=== PATIENT | female | born 1995 | race Caucasian/White ===

== ENCOUNTER → 2017-09-24 | Outpatient (CLI) | payer SELFPAY ==
[~2017-09-24] MED LIST: ABAC300; ALBU3IS; ALBU90OI INH; BENZ100A PO; BUDE6HFA; HYDACE5325 PO; LISI20 PO; LORA2 PO; Lisinopril1 GM; METF500C PO; PRED20 PO; PROP10; Prednisone10 MG PO; Prednisone20 MG PO; QVAR7.3 G1; SULTRIDS PO; Tessalon Perle100 MG PO; Ventolin Soln3 ML INH; [UNRECOGNIZED DRUG - REMARK]; [UNRECOGNIZED DRUG - REMARK]
== END ==
LOC: LAB SHORT 11:38 → LAB 11:38
DX: Z34.00 Encounter for supervision of normal first pregnancy, unspecified trimester (principal)
CPT/HCPCS: 87081; 87653

== ENCOUNTER 2018-04-16 17:23 | Emergency (ER) | payer OTHER ==
[~2018-04-16] VITALS: Ht 149.9 cm; Wt 86.2 kg
[2018-04-16] MEDS ORDERED: NAPR550 PO (18:55)
== END 2018-04-16 19:10 | disposition home or self-care (01) ==
LOC: ER 17:23
DX: S09.90XA Unspecified injury of head, initial encounter (principal); S16.1XXA Strain of muscle, fascia and tendon at neck level, initial encounter; S29.012A Strain of muscle and tendon of back wall of thorax, initial encounter; W18.2XXA Fall in (into) shower or empty bathtub, initial encounter; J45.909 Unspecified asthma, uncomplicated
CPT/HCPCS: 70450; 72070; 72125; J1885; J2405; J3010

== ENCOUNTER 2019-03-02 20:17 | Emergency (ER) | payer OTHER ==
[~2019-03-02] VITALS: Ht 149.9 cm; Wt 88.5 kg
[~2019-03-02 20:17] MED LIST changes: +NAPR550 PO
== END 2019-03-02 22:58 | disposition home or self-care (01) ==
LOC: ER 20:17
DX: S93.401A Sprain of unspecified ligament of right ankle, initial encounter (principal); X50.9XXA Other and unspecified overexertion or strenuous movements or postures, initial encounter; Z79.899 Other long term (current) drug therapy; Z79.84 Long term (current) use of oral hypoglycemic drugs; J45.909 Unspecified asthma, uncomplicated
CPT/HCPCS: 73610; 73630; 99283-25

== ENCOUNTER 2019-11-03 11:12 | Emergency (ER) | payer OTHER ==
[~2019-11-03] VITALS: Ht 149.9 cm; Wt 77.1 kg
[2019-11-03 11:57] LABS: BASOPHILS ABSOLUTE AUTO 0.04 K/mm3 (0.00-0.23); BASOPHILS PERCENT AUTO 1 % (0-2); EOSINOPHILS ABSOLUTE AUTO 0.59 K/mm3 (0.00-0.68); EOSINOPHILS PERCENT AUTO 7 % (0-6); Hematocrit 41.2 % (33.0-51.0); Hemoglobin 13.5 g/dL (11.5-16.0); IMMATURE GRAN ABSOLUTE AUTO 0.03 K/mm3 (0.00-0.10); IMMATURE GRAN PERCENT AUTO 0 % (0-1); LYMPHOCYTES ABSOLUTE AUTO 1.96 K/mm3 (0.84-5.20); LYMPHOCYTES PERCENT AUTO 23 % (21-46); MONOCYTES ABSOLUTE AUTO 0.38 K/mm3 (0.16-1.47); MONOCYTES PERCENT AUTO 5 % (4-13); Mean Corpuscular HGB 28.5 pg (26.0-34.0); Mean Corpuscular HGB Conc 32.8 g/dL (31.5-36.5); Mean Corpuscular Volume 87 fL (80-100); Mean Platelet Volume 10.9 fL (9.1-12.4); NEUTROPHILS PERCENT AUTO 64 % (41-73); Platelet Count 272 K/mm3 (150-400); RDW Coefficient Variation 13.1 % (11.7-14.2); RDW Standard Deviation 41.4 fL (35.1-46.3); Red Blood Cell Count 4.73 M/mm3 (3.80-5.20)
[2019-11-03] MEDS ORDERED: ACYC200 PO (12:10)
[2019-11-03 12:35] LABS: Alanine Aminotransfer (ALT/SGP 21 U/L (12-78); Albumin, Blood 3.6 g/dL (3.4-5.0); Albumin/Globulin Ratio 0.9 (0.8-1.8); Alk Phos 64 U/L (50-136); Anion Gap 7 mmol/L (6-16); Aspartate Aminotrans (AST/SGOT 11 U/L (12-37); Bilirubin, Total 0.6 mg/dL (0.1-1.0); Blood Urea Nitrogen 7 mg/dL (8-24); Bun/Creatinine Ratio 11.5 (12.0-20.0); CO2, Blood 24 mmol/L (21-32); Calcium, Blood 8.8 mg/dL (8.5-10.1); Chloride, Blood 111 mmol/L (98-108); Creatinine, Blood 0.61 mg/dL (0.40-1.00); Globulin, Blood 3.8 g/dL (2.2-4.0); Glomerular Filtration Rate >60 (60-); Glucose, Blood 148 mg/dL (70-99); Potassium, Blood 3.6 mmol/L (3.5-5.5); Sodium, Blood 142 mmol/L (136-145); Total Protein, Blood 7.4 g/dL (6.4-8.2)
[2019-11-03 13:23] LABS: Source, Urine Clean Catch
[2019-11-03 13:25] LABS: Bilirubin, Urine Neg (Neg); Blood, Urine Neg (Neg); Glucose Qualitative, Urine Neg (Neg); Ketones, Urine Neg (Neg); Leukocyte Esterase, Urine 1+ (Neg); Nitrite, Urine Neg (Neg); Protein, Urine Neg (Neg); Urobilinogen, Urine NORM (Normal)
[2019-11-03 13:33] LABS: Appearance, Urine Clear (Clear); Color, Urine Yellow (P-Yellow)
[2019-11-03 13:36] LABS: Bacteria Few /hpf; Red Blood Cells, Urine 0-2 /hpf (0-2); Squamous Epithelial Cells Mod /hpf (Few)
[2019-11-03] MEDS ORDERED: PROM25 PO (14:03)
[2019-11-03] MEDS ORDERED: ONDA4 PO (14:03)
== END 2019-11-03 14:20 | disposition home or self-care (01) ==
LOC: ER 11:12
PROVIDERS: Physician Assistant
DX: R11.2 Nausea with vomiting, unspecified (principal); J45.909 Unspecified asthma, uncomplicated; Z79.3 Long term (current) use of hormonal contraceptives; Z79.51 Long term (current) use of inhaled steroids; Z79.84 Long term (current) use of oral hypoglycemic drugs; Z79.899 Other long term (current) drug therapy
CPT/HCPCS: 36415; 80053; 81001; 81025; 83690; 85025; 87086; 93005; 93010; 96361; 96374; 99283-25; A9270; J2405; J7120

== ENCOUNTER 2020-04-01 00:04 | Emergency (ER) | payer OTHER ==
[~2020-04-01] VITALS: Ht 149.9 cm; Wt 95.2 kg
[~2020-04-01 00:04] MED LIST changes: +ACYC200 PO; +ONDA4 PO; +PROM25 PO
[2020-04-01] MEDS ORDERED: MONT10T PO (00:17)
[2020-04-01] MEDS ORDERED: IBUP600 PO (00:37)
== END 2020-04-01 01:30 | disposition home or self-care (01) ==
LOC: ER 00:04
DX: S83.91XA Sprain of unspecified site of right knee, initial encounter (principal); J45.909 Unspecified asthma, uncomplicated; Z79.84 Long term (current) use of oral hypoglycemic drugs; Z79.899 Other long term (current) drug therapy; Z79.51 Long term (current) use of inhaled steroids; W10.9XXA Fall (on) (from) unspecified stairs and steps, initial encounter; Y93.K1 Activity, walking an animal
CPT/HCPCS: 73562-RT; 99283-25; A9270

== ENCOUNTER 2020-04-22 21:53 | Emergency (ER) | payer OTHER ==
[~2020-04-22] VITALS: Ht 149.9 cm; Wt 90.7 kg
[~2020-04-22 21:53] MED LIST changes: +IBUP600 PO; +MONT10T PO
== END 2020-04-23 00:37 | disposition left against medical advice (07) ==
LOC: ER 21:53
DX: M25.572 Pain in left ankle and joints of left foot (principal)
CPT/HCPCS: 73590; 73610; 73630; 96372; 99283-25; J1885

== ENCOUNTER 2020-08-25 13:51 | Emergency (ER) | payer OTHER ==
[~2020-08-25] VITALS: Ht 149.9 cm; Wt 102.1 kg
[2020-08-25] MEDS ORDERED: Amoxicillin500 MG PO (15:12)
== END 2020-08-25 15:19 | disposition home or self-care (01) ==
LOC: ER 13:51
DX: J02.0 Streptococcal pharyngitis (principal)
CPT/HCPCS: 87081; 87147; 87430; 99284; J1100

== ENCOUNTER 2020-10-01 22:24 | Emergency (ER) | payer OTHER ==
[~2020-10-01] VITALS: Ht 149.9 cm; Wt 90.7 kg
[~2020-10-01 22:24] MED LIST changes: +Amoxicillin500 MG PO
== END 2020-10-02 03:30 | disposition home or self-care (01) ==
LOC: ER 22:24
DX: J45.901 Unspecified asthma with (acute) exacerbation (principal); Z20.822 Contact with and (suspected) exposure to COVID-19
CPT/HCPCS: 99283-25; A9270

== ENCOUNTER 2021-04-13 10:01 | Emergency (ER) | payer OTHER ==
[~2021-04-13] VITALS: Ht 149.9 cm; Wt 90.7 kg
[2021-04-13 11:11] LABS: Influenza A, PCR NEGATIVE (NEGATIVE); Influenza B, PCR NEGATIVE (NEGATIVE); Resp Syncytial Virus, PCR NEGATIVE (NEGATIVE); SARS-Cov-2 (COVID-19) PCR, MMC NEGATIVE (NEGATIVE)
[2021-04-13] MEDS ORDERED: AZIT250 PO (13:17)
[2021-04-13] MEDS ORDERED: Prednisone50 MG PO (13:17)
== END 2021-04-13 13:51 | disposition home or self-care (01) ==
LOC: ER 10:01
PROVIDERS: Emergency Medicine
DX: J45.901 Unspecified asthma with (acute) exacerbation (principal); Z20.822 Contact with and (suspected) exposure to COVID-19; Z79.2 Long term (current) use of antibiotics; Z79.899 Other long term (current) drug therapy
CPT/HCPCS: 0241U; 71045; 94640; 96374; 96375; 99285-25; A9270; J2405; J3475; J7512

== ENCOUNTER → 2021-05-02 | Outpatient (CLI) | payer OTHER ==
[~2021-05-02] MED LIST changes: +AZIT250 PO; +CYCL10 PO; +Prednisone50 MG PO
[2021-05-07 09:11] LABS: HPV 16 Negative (Negative); HPV 18 Negative (Negative); HPV OTHER HR TYPES Negative (Negative)
== END | disposition home or self-care (01) ==
LOC: LAB SHORT 11:50 → LAB 11:50
PROVIDERS: Nurse Practitioner Family
DX: Z12.4 Encounter for screening for malignant neoplasm of cervix (principal)
CPT/HCPCS: 87624; G0145

== ENCOUNTER 2021-07-15 18:20 | Emergency (ER) | payer OTHER ==
[~2021-07-15] VITALS: Ht 149.9 cm; Wt 99.8 kg
[~2021-07-15 18:20] MED LIST changes: -CYCL10 PO
[2021-07-15] MEDS ORDERED: CYCL10 PO (23:16)
== END 2021-07-15 23:27 | disposition home or self-care (01) ==
LOC: ER 18:20
DX: S80.211A Abrasion, right knee, initial encounter (principal); S50.311A Abrasion of right elbow, initial encounter; M62.838 Other muscle spasm; R51.9 Headache, unspecified; J06.9 Acute upper respiratory infection, unspecified; J45.909 Unspecified asthma, uncomplicated; Z79.899 Other long term (current) drug therapy; V00.131A Fall from skateboard, initial encounter; Y92.9 Unspecified place or not applicable
CPT/HCPCS: 70450; 72125; 73030; 73070; 73562-RT; A9270; J1885

== ENCOUNTER 2021-07-26 18:45 | Emergency (ER) | payer OTHER ==
[~2021-07-26] VITALS: Ht 149.9 cm; Wt 99.8 kg
[~2021-07-26 18:45] MED LIST changes: +CYCL10 PO
== END 2021-07-26 20:40 | disposition home or self-care (01) ==
LOC: ER 18:45
DX: S46.911A Strain of unspecified muscle, fascia and tendon at shoulder and upper arm level, right arm, initial encounter (principal); I10 Essential (primary) hypertension; J45.909 Unspecified asthma, uncomplicated; Z79.899 Other long term (current) drug therapy; Z79.84 Long term (current) use of oral hypoglycemic drugs; Z79.52 Long term (current) use of systemic steroids; X58.XXXA Exposure to other specified factors, initial encounter; Y93.51 Activity, roller skating (inline) and skateboarding; Y92.9 Unspecified place or not applicable
CPT/HCPCS: 73030; J1885

== ENCOUNTER 2021-08-19 20:32 | Emergency (ER) | payer OTHER ==
[~2021-08-19] VITALS: Ht 149.9 cm; Wt 105.2 kg
== END 2021-08-19 22:00 | disposition home or self-care (01) ==
LOC: ER 20:32
DX: Z20.822 Contact with and (suspected) exposure to COVID-19 (principal); I10 Essential (primary) hypertension; Z79.52 Long term (current) use of systemic steroids; Z79.84 Long term (current) use of oral hypoglycemic drugs; Z79.899 Other long term (current) drug therapy
CPT/HCPCS: 99282

== ENCOUNTER 2022-03-07 14:33 | Emergency (ER) | payer OTHER ==
[~2022-03-07] VITALS: Ht 167.6 cm; Wt 90.7 kg
[2022-03-07 15:06] LABS: BASOPHILS ABSOLUTE AUTO 0.05 K/mm3 (0.00-0.23); BASOPHILS PERCENT AUTO 1 % (0-2); EOSINOPHILS ABSOLUTE AUTO 1.26 K/mm3 (0.00-0.68); EOSINOPHILS PERCENT AUTO 13 % (0-6); Hemoglobin 14.1 g/dL (11.5-16.0); IMMATURE GRAN ABSOLUTE AUTO 0.03 K/mm3 (0.00-0.10); IMMATURE GRAN PERCENT AUTO 0 % (0-1); LYMPHOCYTES ABSOLUTE AUTO 2.57 K/mm3 (0.84-5.20); LYMPHOCYTES PERCENT AUTO 27 % (21-46); MONOCYTES ABSOLUTE AUTO 0.54 K/mm3 (0.16-1.47); MONOCYTES PERCENT AUTO 6 % (4-13); Mean Corpuscular HGB 28.5 pg (26.0-34.0); Mean Corpuscular HGB Conc 32.8 g/dL (31.5-36.5); Mean Corpuscular Volume 87 fL (80-100); Mean Platelet Volume 11.1 fL (9.1-12.4); NEUTROPHILS ABSOLUTE AUTO 5.17 K/mm3 (1.96-9.15); NEUTROPHILS PERCENT AUTO 54 % (41-73); Platelet Count 292 K/mm3 (150-400); RDW Coefficient Variation 13.4 % (11.7-14.2); RDW Standard Deviation 42.2 fL (35.1-46.3); Red Blood Cell Count 4.95 M/mm3 (3.80-5.20); White Blood Cell Count 9.62 K/mm3 (4.00-11.30)
[2022-03-07 15:17] LABS: Albumin, Blood 3.6 g/dL (3.4-5.0); Albumin/Globulin Ratio 0.9 (0.8-1.8); Bilirubin, Total 0.5 mg/dL (0.1-1.0); Bun/Creatinine Ratio 12.4 (12.0-20.0); Calcium, Blood 8.8 mg/dL (8.5-10.1); Creatinine, Blood 0.64 mg/dL (0.40-1.00); Globulin, Blood 3.8 g/dL (2.2-4.0); Total Protein, Blood 7.4 g/dL (6.4-8.2)
[2022-03-07 15:44] LABS: Influenza A, PCR NEGATIVE (NEGATIVE); Influenza B, PCR NEGATIVE (NEGATIVE); Resp Syncytial Virus, PCR NEGATIVE (NEGATIVE); SARS-Cov-2 (COVID-19) PCR, MMC NEGATIVE (NEGATIVE)
[2022-03-07] MEDS ORDERED: BENZ100A PO (16:28)
[2022-03-07] MEDS ORDERED: Prednisone20 MG PO (16:28)
== END 2022-03-07 16:38 | disposition home or self-care (01) ==
LOC: ER 14:33
PROVIDERS: Physician Assistant
DX: J45.901 Unspecified asthma with (acute) exacerbation (principal); J06.9 Acute upper respiratory infection, unspecified; I10 Essential (primary) hypertension; Z20.822 Contact with and (suspected) exposure to COVID-19; Z79.899 Other long term (current) drug therapy
CPT/HCPCS: 0241U; 36415; 71046; 80053; 85025; A9270; J2930

== ENCOUNTER 2022-06-29 16:33 | Emergency (ER) | payer OTHER ==
[~2022-06-29] VITALS: Ht 149.9 cm; Wt 102.5 kg
[2022-06-29 16:53] LABS: BASOPHILS ABSOLUTE AUTO 0.04 K/mm3 (0.00-0.23); BASOPHILS PERCENT AUTO 0 % (0-2); EOSINOPHILS ABSOLUTE AUTO 0.55 K/mm3 (0.00-0.68); EOSINOPHILS PERCENT AUTO 5 % (0-6); Hematocrit 42.6 % (33.0-51.0); Hemoglobin 14.4 g/dL (11.5-16.0); IMMATURE GRAN ABSOLUTE AUTO 0.04 K/mm3 (0.00-0.10); IMMATURE GRAN PERCENT AUTO 0 % (0-1); LYMPHOCYTES ABSOLUTE AUTO 3.12 K/mm3 (0.84-5.20); LYMPHOCYTES PERCENT AUTO 27 % (21-46); MONOCYTES ABSOLUTE AUTO 0.59 K/mm3 (0.16-1.47); MONOCYTES PERCENT AUTO 5 % (4-13); Mean Corpuscular HGB 29.1 pg (26.0-34.0); Mean Corpuscular HGB Conc 33.8 g/dL (31.5-36.5); Mean Corpuscular Volume 86 fL (80-100); Mean Platelet Volume 10.9 fL (9.1-12.4); NEUTROPHILS PERCENT AUTO 63 % (41-73); Platelet Count 330 K/mm3 (150-400); RDW Coefficient Variation 12.4 % (11.7-14.2); RDW Standard Deviation 39.1 fL (35.1-46.3); Red Blood Cell Count 4.95 M/mm3 (3.80-5.20); White Blood Cell Count 11.64 K/mm3 (4.00-11.30)
[2022-06-29 17:20] LABS: Albumin, Blood 3.8 g/dL (3.4-5.0); Albumin/Globulin Ratio 0.9 (0.8-1.8); Bilirubin, Total 0.4 mg/dL (0.1-1.0); Bun/Creatinine Ratio 7.7 (12.0-20.0); Calcium, Blood 9.1 mg/dL (8.5-10.1); Creatinine, Blood 0.65 mg/dL (0.40-1.00); Globulin, Blood 4.1 g/dL (2.2-4.0); Potassium, Blood 3.9 mmol/L (3.5-5.5); Total Protein, Blood 7.9 g/dL (6.4-8.2)
[2022-06-29] MEDS ORDERED: OXAYDO5 M1 PO (19:07)
[2022-06-29 19:30] VITALS: BP 138/78
== END 2022-06-29 19:35 | disposition home or self-care (01) ==
LOC: ER 16:33
PROVIDERS: Student in an Organized Health Care Education/Training Program
DX: O03.4 Incomplete spontaneous abortion without complication (principal); Z79.899 Other long term (current) drug therapy; Z79.84 Long term (current) use of oral hypoglycemic drugs; I10 Essential (primary) hypertension; J45.909 Unspecified asthma, uncomplicated
CPT/HCPCS: 76830; 76856; 80053; 84702; 84703; 85025; 86850; 86900; 86901; 93005; 93010; 96374; 96375; 99284-25; A9270; J2060; J2270

== ENCOUNTER → 2023-09-29 | Outpatient (CLI) | payer OTHER ==
[~2023-09-29] MED LIST changes: +BUDESONIDE-FO10.2 G3; +HYDR1TAB94 PO; +ONDA4ODT MM; +OXAYDO5 M1 PO
[2023-10-01 16:07] LABS: HEPATITIS B SURFACE ANTIGEN Negative (Negative)
[2023-10-01 17:07] LABS: HEPATITIS C AB CIA INTERP Negative (Negative); HEPATITIS C ANTIBODY CIA INDEX 0.06 IV
[2023-10-02 11:21] LABS: APTIMA MEDIA TYPE MultiTest Swab; C. TRACHOMATIS BY TMA Positive (Negative); N. GONORRHOEAE BY TMA Negative (Negative); SPECIMEN SOURCE Vaginal; T. VAGINALIS BY TMA Negative (Negative)
== END ==
LOC: LAB 18:48 → LAB SHORT 18:48
PROVIDERS: Registered Nurse Community Health
DX: Z11.3 Encounter for screening for infections with a predominantly sexual mode of transmission (principal); Z20.2 Contact with and (suspected) exposure to infections with a predominantly sexual mode of transmission
CPT/HCPCS: 86592; 86803; 87340; 87491; 87591; 87661

== ENCOUNTER → 2023-12-31 | Outpatient (CLI) | payer OTHER ==
[2024-01-01 07:46] LABS: Candida Group, PCR NOT DETECTED (NOT DETECT); Candida glabrata-krusei, PCR NOT DETECTED (NOT DETECT)
[2024-01-01 07:54] LABS: Bacterial Vaginosis PCR Positive (NEGATIVE)
[2024-01-03 14:00] LABS: HIV 1,2 COMBO ANTIGEN/ANTIBODY Negative (Negative)
[2024-01-03 15:02] LABS: HEPATITIS C AB CIA INTERP Negative (Negative); HEPATITIS C ANTIBODY CIA INDEX 0.12 IV
== END ==
LOC: LAB 18:39 → LAB SHORT 18:39
PROVIDERS: General Practice
DX: Z72.51 High risk heterosexual behavior (principal); Z20.9 Contact with and (suspected) exposure to unspecified communicable disease
CPT/HCPCS: 86592; 86803; 87389; 87481; 87661; 87801

== ENCOUNTER 2024-02-08 15:52 | Emergency (ER) | payer OTHER ==
[~2024-02-08] VITALS: Ht 167.6 cm; Wt 81.7 kg
[2024-02-08 16:25] VITALS: BP 147/98
[2024-02-08] MEDS ORDERED: Ultram50 MG PO (16:28)
[2024-02-08] MEDS ORDERED: AMOCLA875 PO (16:28)
== END 2024-02-08 16:33 | disposition home or self-care (01) ==
LOC: ER 15:52
DX: K04.7 Periapical abscess without sinus (principal); J45.909 Unspecified asthma, uncomplicated; I10 Essential (primary) hypertension; Z79.84 Long term (current) use of oral hypoglycemic drugs; Z79.51 Long term (current) use of inhaled steroids; Z79.899 Other long term (current) drug therapy
CPT/HCPCS: 99282

== ENCOUNTER 2024-09-27 23:54 | Emergency (ER) | payer OTHER ==
[~2024-09-27] VITALS: Ht 149.9 cm; Wt 83.9 kg
[~2024-09-27 23:54] MED LIST changes: +AMOCLA875 PO; +Ultram50 MG PO
[2024-09-28] VITALS: BP 137/85
[2024-09-28] MEDS ORDERED: OxyCODONE 5 mg/Acetamin 325 mg TABLET PO ONE (00:15)
[2024-09-28] MEDS ORDERED: Ondansetron 4 MG SoluTab SL ONE ×2 (01:10)
[2024-09-28] MEDS ORDERED: ONDA4ODT MM (01:10)
[2024-09-28] MEDS ORDERED: KETO10 PO (01:57)
== END 2024-09-28 02:57 | disposition home or self-care (01) ==
LOC: ER 23:54
DX: S00.03XA Contusion of scalp, initial encounter (principal); S00.83XA Contusion of other part of head, initial encounter; M79.641 Pain in right hand; R07.81 Pleurodynia; Y04.2XXA Assault by strike against or bumped into by another person, initial encounter
CPT/HCPCS: 70450; 71250; 73120; 74176; 90471; 90715; 99284-25; A9270